=== PATIENT | female | born 1955 | race African-American/Black ===

== ENCOUNTER 2018-06-04 09:01 | Day surgery (SDC) | payer OTHER, BC ==
[2018-05-29 16:26] VITALS: BMI 38.3
[2018-06-04] MEDS ORDERED: PROPOFOL 20 ML ONE (10:10)
[2018-06-04 14:00] VITALS: TEMP 98.6
[2018-06-04 14:02] VITALS: BP 142/74; PULSE 72
== END 2018-06-04 11:45 | disposition home or self-care (01) ==
LOC: FASU-ENDO 09:01
PROVIDERS: ATTEND Internal Medicine Gastroenterology
PROC: 0DJD8ZZ Inspection of Lower Intestinal Tract, Via Natural or Artificial Opening Endoscopic (ICD-10-PCS; principal; 2018-06-04 10:33)
DX: Z12.11 Encounter for screening for malignant neoplasm of colon (principal); K57.30 Diverticulosis of large intestine without perforation or abscess without bleeding

== ENCOUNTER 2024-09-11 07:26 | Day surgery (SDC) | payer OTHER, BC ==
[2024-09-09 15:27] VITALS: BMI 40.4
[2024-09-11] MEDS ORDERED: LIDOCAINE HCL/PF 2% SDV 5ML VIAL ONE (08:05)
[2024-09-11] MEDS ORDERED: PROPOFOL 160 ML ONE (08:05)
[2024-09-11 08:52] VITALS: TEMP 97.7
[2024-09-11 09:12] VITALS: BP 128/77; PULSE 75; RESP 19
== END 2024-09-11 09:30 | disposition home or self-care (01) ==
LOC: FASU-ENDO 07:26
PROVIDERS: ATTEND Internal Medicine Gastroenterology
PROC: 0DBN8ZX Excision of Sigmoid Colon, Via Natural or Artificial Opening Endoscopic, Diagnostic (ICD-10-PCS; principal; 2024-09-11 08:24)
DX: Z12.11 Encounter for screening for malignant neoplasm of colon (principal); K57.30 Diverticulosis of large intestine without perforation or abscess without bleeding
CPT/HCPCS: 88305-TC